=== PATIENT | male | born 1980 | race Caucasian/White ===

== ENCOUNTER 2017-02-23 13:18 | Emergency (ER) | payer BC ==
--- NOTE | 2017-02-23 13:26 | EDM.PDOC ---
ED HPI GENERAL MEDICAL PROBLEM - General Chief Complaint: Neck Problem Stated Complaint: [id number] SHARP PAIN LOWER NECK BETWEEN SHOULDER Time Seen by Provider: 02/23/17 13:22 Source of Information: Reports: Patient, Old Records, RN, RN Notes Reviewed History Limitations: Reports: No Limitations - History of Present Illness INITIAL COMMENTS - FREE TEXT/NARRATIVE: Arrives to ER by POV with c/o sharp pains at the base of the neck and upper back , especially between the shoulder blades. Pt was doing heavy outdoor/lawn care this weekend and felt a pop in the lower neck/upper T-spine region and since that time has has severe sharp pains with tingling and pain radiating down the Rt arm to the hand with some mild weakness in the hand. Onset: Sudden Onset Date: 02/21/17 Duration: Constant Location: Reports: Neck, Back Quality: Reports: Sharp Severity: Severe Improves with: Reports: None Worsens with: Reports: Movement Associated Symptoms: Reports: No Other Symptoms Neck Pain Score (Numeric/FACES): 8 - Related Data Allergies Allergy/AdvReac Type Severity Reaction Status Date / Time Sulfa (Sulfonamide Allergy Hives Verified 02/23/17 13:22 Antibiotics) Home Meds: Home Meds Omeprazole 20 mg PO DAILY 05/09/16 [History] Past Medical History HEENT History: Reports: Impaired Vision Other Genitourinary History: 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 Musculoskeletal History: Reports: Back Pain, Chronic, Fracture, Neck Pain, Chronic, Osteoarthritis, Other (See Below) - Past Surgical History Musculoskeletal Surgical History: Reports: Other (See Below) Social & Family History - Family History Family Medical History: Noncontributory - Tobacco Use Smoking Status *Q: Former Smoker - Caffeine Use Caffeine Use: Reports: Soda - Recreational Drug Use Recreational Drug Use: No - Living Situation & Occupation Living situation: Reports: with Family Occupation: Employed ED ROS GENERAL - Review of Systems Review Of Systems: ROS reveals no pertinent complaints other than HPI. ED EXAM, UPPER BACK/NECK PAIN - Physical Exam Exam: See Below Exam Limited By: No Limitations General Appearance: Alert, WD/WN, No Apparent Distress Eye Exam: Bilateral Eye: Normal Inspection Ears Exam: Normal External Exam, Hearing Grossly Normal Nose Exam: Normal Inspection, Normal Mucousa, No Blood Throat/Mouth Exam: Normal Inspection Head Exam: Atraumatic, Normocephalic Neck Exam: Limited Range of Motion, Paraspinous Muscle Tender Nexus Criteria: No: Posterior, Midline Cervical Tenderness, Evidence of Intoxication, Altered Level of Consciousness, Focal Neurological Deficit, Painful Distraction Injuries Cardiovascular/Respiratory: Regular Rate, Rhythm, Normal Peripheral Pulses Back Exam: Muscle Spasm, Paraspinal Tenderness (upper thoracic). 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 As Tested, No Motor/Sensory Deficits, Alert, Normal Mood/Affect, Oriented x 3 Psychiatric: Normal Mood Skin Exam: Normal Color, Warm/Dry Course - Vital Signs Last Recorded V/S: Last Vital Signs Temp 36.5 C 02/23/17 13:23 Pulse 90 02/23/17 13:23 Resp 16 02/23/17 13:23 BP 151/99 H 02/23/17 13:23 Pulse Ox 98 02/23/17 13:23 - Orders/Labs/Meds Orders: Active Orders 24 hr Category Date Time Status Cervical Spine wo Cont [CT] Stat Exams 02/23/17 13:51 Taken Thoracic Spine wo Cont [CT] Stat Exams 02/23/17 13:51 Taken Meds: Medications Discontinued Medications Generic Name Dose Route Start Last Admin Trade Name Augusta PRN Reason Stop Dose Admin Hydromorphone HCl 1 mg 02/23/17 13:51 02/23/17 13:56 Dilaudid IM 02/23/17 13:52 1 mg ONETIME ONE Administration Ketorolac Tromethamine 60 mg 02/23/17 13:51 02/23/17 13:57 Toradol IM 02/23/17 13:52 60 mg ONETIME ONE Administration - Radiology Interpretation Free Text/Narrative:: CT C & T spines: no acute fractures, mult-level postraumatic changes of DDD, osteophyte formation, and compression fractures, see Rad. report. CT Results Date: 02/23/17 CT Results Time: 15:02 Departure - Departure Time of Disposition: 15:03 Disposition: Home, Self-Care 01 Condition: Fair Clinical Impression: Cervical radiculopathy, Acute exacerbation of chronic low back pain - Discharge Information Instructions: Cervical Radiculopathy, Degenerative Disk Disease Forms: ED Department Discharge Additional Instructions: Rx: Decadron 4mg Rx: Gabapentin 300mg *Do not drive while under the influence of this medication. Limit activity as needed for 7 to 10 days. Follow up in clinic in 5 to 7 days for recheck. - My Orders Last 24 Hours: My Active Orders 02/23/17 13:51 Cervical Spine wo Cont [CT] Stat Thoracic Spine wo Cont [CT] Stat - Assessment/Plan Last 24 Hours: My Active Orders 02/23/17 13:51 Cervical Spine wo Cont [CT] Stat Thoracic Spine wo Cont [CT] Stat
[2017-02-23 13:29] VITALS: BP 151/99
[2017-02-23] MEDS ORDERED: HYDROmorphone 1 MG/ML Syringe IM ONE (13:51)
[2017-02-23] MEDS ORDERED: Ketorolac 30 MG/ML SDV IM ONE (13:51)
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
== END 2017-02-23 15:23 | disposition home or self-care (01) ==
LOC: DL.ED 13:18
DX: M54.12 Radiculopathy, cervical region (principal); M54.5 Low back pain; G89.29 Other chronic pain; H54.7 Unspecified visual loss; M19.90 Unspecified osteoarthritis, unspecified site; Z88.2 Allergy status to sulfonamides; Z87.891 Personal history of nicotine dependence
CPT/HCPCS: 72125; 72128; 96372; 99283; J1170; J1885

== ENCOUNTER 2018-01-01 08:17 | Emergency (ER) | payer BC ==
[2018-01-01 08:31] VITALS: BP 140/97
[2018-01-01] MEDS ORDERED: Ketorolac 30 MG/ML SDV IM ONE (08:33)
--- NOTE | 2018-01-01 08:44 | EDM.PDOC ---
ED HPI GENERAL MEDICAL PROBLEM - General Chief Complaint: Upper Extremity Injury/Pain Stated Complaint: LEFT SHOULD, ARM TINGLY. Time Seen by Provider: 01/01/18 08:30 Source of Information: Reports: Patient History Limitations: Reports: No Limitations - History of Present Illness INITIAL COMMENTS - FREE TEXT/NARRATIVE: This 37 yo male patient reports to the ED with left shoulder pain. The patient reports he initially injured his shoulder about 2 weeks ago while lifting up his 50 pound daughter. Since that time, the patient reports he has had increased discomfort with abduction of the shoulder. This morning, the patient reports that he woke up at about 0400 from sleeping on his left side and had increased pain in his left shoulder. The patient reports that today he has intense pain with abduction of his shoulder. The patient also reports sharp pains radiating down his arm into his hand. The patient reports that he took Ibuprofen at about 0400 and Tylenol at about 0630 with little to no symptom relief. The patient reports no previous injuries to the shoulder or arm. 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 - Related Data Allergies Allergy/AdvReac Type Severity Reaction Status Date / Time Sulfa (Sulfonamide Allergy Hives Verified 02/23/17 13:22 Antibiotics) Home Meds: Home Meds Omeprazole 20 mg PO DAILY 05/09/16 [History] Past Medical History HEENT History: Reports: Impaired Vision Other Genitourinary History: 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 Musculoskeletal History: Reports: Back Pain, Chronic, Fracture, Neck Pain, Chronic, Osteoarthritis, Other (See Below) Other Musculoskeletal History: left foot surgery - Past Surgical History Musculoskeletal Surgical History: Reports: Other (See Below) Social & Family History - Family History Family Medical History: Noncontributory - Caffeine Use Caffeine Use: Reports: Soda - Living Situation & Occupation Living situation: Reports: with Family Occupation: Employed Review of Systems - Review of Systems Review Of Systems: ROS reveals no pertinent complaints other than HPI. ED EXAM, GENERAL - Physical Exam Exam: See Below Exam Limited By: No Limitations General Appearance: Alert, WD/WN, Moderate Distress Eye Exam: Bilateral Eye: EOMI, Normal Inspection, PERRL Ears: Normal External Exam, Normal Canal, Hearing Grossly Normal, Normal TMs Nose: Normal Inspection, Normal Mucosa, No Blood Throat/Mouth: Normal Inspection, Normal Lips, Normal Teeth, Normal Gums, Normal Oropharynx, Normal Voice, No Airway Compromise Head: Atraumatic, Normocephalic Neck: Normal Inspection, Supple, Non-Tender, Full Range of Motion Respiratory/Chest: No Respiratory Distress Cardiovascular: Normal Peripheral Pulses, Regular Rate, Rhythm, No Edema, No Gallop, No JVD, No Murmur, No Rub GI/Abdominal: Normal Bowel Sounds, Soft, Non-Tender, No Organomegaly, No Distention, No Abnormal Bruit, No Mass (Male) Exam: Deferred Rectal (Males) Exam: Deferred Back Exam: Normal Inspection, Full Range of Motion, NT Extremities: Arm Pain (left shoulder pain (increased pain in the anterior SITS muscle insertions (supraspinatus marked increase in pain with palpation) ) Neurological: Alert, Oriented, CN II-XII Intact, Normal Cognition, Normal Gait, Normal Reflexes, No Motor/Sensory Deficits Psychiatric: Normal Affect, Normal Mood Skin Exam: Warm, Dry, Intact, Normal Color, No Rash Lymphatic: No Adenopathy Course - Vital Signs Last Recorded V/S: Last Vital Signs Temp 37.3 C 01/01/18 08:30 Pulse 76 01/01/18 08:30 Resp 16 01/01/18 08:30 BP 140/97 H 01/01/18 08:30 Pulse Ox 98 01/01/18 08:30 - Orders/Labs/Meds Orders: Active Orders 24 hr Category Date Time Status Shoulder Comp Lt [CR] Urgent Exams 01/01/18 08:33 Ordered Meds: Medications Discontinued Medications Generic Name Dose Route Start Last Admin Trade Name Freq PRN Reason Stop Dose Admin Ketorolac Tromethamine 60 mg 01/01/18 08:33 Toradol IM 01/01/18 08:34 ONETIME ONE Departure - Departure Time of Disposition: 09:55 Disposition: Home, Self-Care 01 Condition: Fair Clinical Impression: Left shoulder strain Qualifiers: Encounter type: initial encounter Qualified Code(s): S46.912A - Strain of unspecified muscle, fascia and tendon at shoulder and upper arm level, left arm , initial encounter - Discharge Information *PRESCRIPTION DRUG MONITORING PROGRAM REVIEWED*: No *COPY OF PRESCRIPTION DRUG MONITORING REPORT IN PATIENT MAXX: No Instructions: Shoulder Pain, [id number] Care Plan Goals: The patient was advised of the examination and x-ray results during the visit. The patient was given an injection of Toradol while in the ED. The patient was discharged with a script for Toradol (10 mg) #20 to take 1 by mouth every 6 hours and Grant (10/325) #16 to take 1 by mouth every 8 hours as needed for pain. The patient was also placed in a sling to support his left shoulder. If the patient has any additional symptoms or concerns, the patient should follow- up with his primary care facility or return to the emergency department. - My Orders Last 24 Hours: My Active Orders 01/01/18 08:33 Shoulder Comp Lt [CR] Urgent - Assessment/Plan Last 24 Hours: My Active Orders 01/01/18 08:33 Shoulder Comp Lt [CR] Urgent
--- NOTE | 2018-01-01 09:26 | CR ---
Medical history: 37-year-old male left shoulder pain. Interpretation: 4 views left shoulder demonstrate elevation of the humeral head relative to the gleno id of the scapula suggesting rotator cuff impingement or tear. Clinical? No juxta-articular soft tiss ue calcifications. No sign of pathologic skeletal lesion, left shoulder fracture, acromioclavicular separation or acute glenohumeral dislocation. Left lung apex clear. No reactive sclerosis or other arthritic degenerative changes left shoulder.
== END 2018-01-01 10:05 | disposition home or self-care (01) ==
LOC: DL.ED 08:17
DX: S46.912A Strain of unspecified muscle, fascia and tendon at shoulder and upper arm level, left arm, initial encounter (principal); X50.0XXA Overexertion from strenuous movement or load, initial encounter; Z88.2 Allergy status to sulfonamides
CPT/HCPCS: 73030; 96372; 99283; J1885

== ENCOUNTER 2018-08-30 09:59 | Emergency (ER) | payer BC ==
[2018-08-30 10:15] VITALS: BP 135/88
--- NOTE | 2018-08-30 10:50 | EDM.PDOC ---
ED HPI GENERAL MEDICAL PROBLEM - General Chief Complaint: Chest Pain Stated Complaint: HAVING CHEST PAINS Time Seen by Provider: 08/30/18 10:35 Source of Information: Reports: Patient History Limitations: Reports: No Limitations - History of Present Illness INITIAL COMMENTS - FREE TEXT/NARRATIVE: This 38 yo male patient reports to the ED with left sided chest pains that started yesterday. The patient reports his symptoms started yesterday while at home with an episode of chest pain along with near syncope. The patient reports he was at his home when he started for feel very lightheaded. The patient reports he caught himself on the chair prior to falling. The patient reports he noticed his heart was beating more strong than normal and he could feel pulsations in his neck. The patient reports he still has some minor chest pain ( left anterior chest). The patient reports he took 2 aspirin (325 mg) at home this morning. The patient reports he attempted to get an appointment in the clinic, but was advised to come to the ED for evaluation. The patient reports he has been seeing his primary care provider for fibromyalgia. The patient reports after the incident yesterday, he also had a headache in the left side of his head. The patient reports he still has a small amount of pain in his left head. The patient also reports he has been feeling flushed at intermittent times over the past 24 hours. 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 Left Chest Pain Score (Numeric/FACES): 5 - Related Data Allergies Allergy/AdvReac Type Severity Reaction Status Date / Time Sulfa (Sulfonamide Allergy Hives Verified 08/30/18 10:09 Antibiotics) Home Meds: Home Meds Omeprazole 40 mg PO DAILY 05/09/16 [History] Past Medical History HEENT History: Reports: Impaired Vision Cardiovascular History: Reports: None Respiratory History: Reports: None Gastrointestinal History: Reports: GERD Genitourinary History: Reports: Other (See Below) Other Genitourinary History: 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 Musculoskeletal History: Reports: Back Pain, Chronic, Fracture, Neck Pain, Chronic, Osteoarthritis, Other (See Below) Other Musculoskeletal History: left foot surgery Neurological History: Reports: None Psychiatric History: Reports: None Endocrine/Metabolic History: Reports: None Hematologic History: Reports: None Immunologic History: Reports: None Oncologic (Cancer) History: Reports: None Dermatologic History: Reports: None - Infectious Disease History Infectious Disease History: Reports: None - Past Surgical History Head Surgeries/Procedures: Reports: None Musculoskeletal Surgical History: Reports: Other (See Below) Social & Family History - Family History Family Medical History: Noncontributory - Tobacco Use Smoking Status *Q: Former Smoker Used Tobacco, but Quit: Yes Month/Year Tobacco Last Used: ? - Caffeine Use Caffeine Use: Reports: Coffee, Soda - Recreational Drug Use Recreational Drug Use: No - Living Situation & Occupation Living situation: Reports: with Family Occupation: Employed ED ROS GENERAL - Review of Systems Review Of Systems: ROS reveals no pertinent complaints other than HPI. ED EXAM, GENERAL - Physical Exam Exam: See Below Exam Limited By: No Limitations General Appearance: Alert, WD/WN, Anxious, Mild Distress Eye Exam: Bilateral Eye: EOMI, Normal Inspection, PERRL Ears: Normal External Exam, Normal Canal, Hearing Grossly Normal, Normal TMs Nose: Normal Inspection, Normal Mucosa, No Blood Throat/Mouth: Normal Inspection Head: Atraumatic, Normocephalic Neck: Normal Inspection, Supple, Non-Tender, Full Range of Motion Respiratory/Chest: No Respiratory Distress, Lungs Clear, Normal Breath Sounds, No Accessory Muscle Use, Other (left sided anterior chest wall tenderness (left lateral mid sternum)) Cardiovascular: Normal Peripheral Pulses, Regular Rate, Rhythm, No Edema, No Gallop, No Murmur, No Rub GI/Abdominal: Normal Bowel Sounds, Soft, Non-Tender, No Organomegaly, No Distention, No Abnormal Bruit, No Mass (Male) Exam: Deferred Rectal (Males) Exam: Deferred Back Exam: Normal Inspection Extremities: Normal Inspection, Normal Range of Motion, Non-Tender, Normal Capillary Refill, No Pedal Edema Neurological: Alert, Oriented, CN II-XII Intact, Normal Cognition, Normal Gait, Normal Reflexes, No Motor/Sensory Deficits Psychiatric: Anxious Skin Exam: Warm, Dry, Intact, Normal Color, No Rash Lymphatic: No Adenopathy Course - Vital Signs Last Recorded V/S: Last Vital Signs Temp 37.8 C 08/30/18 10:09 Pulse 90 08/30/18 10:09 Resp 14 08/30/18 10:09 BP 135/88 08/30/18 10:09 Pulse Ox 98 08/30/18 10:09 - Orders/Labs/Meds Orders: Active Orders 24 hr Category Date Time Status EKG Documentation Completion [RC] URGENT Care 08/30/18 10:10 Active CULTURE BLOOD [BC] Stat Lab 08/30/18 10:22 Received DRUG SCREEN URINE BIORAD [URCHEM] Stat Lab 08/30/18 10:10 Ordered UA RFX SADA AND CULT IF INDIC [URIN] Stat Lab 08/30/18 10:10 Ordered Labs: Laboratory Tests 08/30/18 08/30/18 08/30/18 Range/Units 10:22 10:22 10:22 WBC 8.4 (5.0-10.0) 10^3/uL RBC 5.41 (4.6-6.2) 10^6/uL Hgb 16.2 (14.0-18.0) g/dL Hct 46.4 (40.0-54.0) % MCV 85.8 (80-100) fL MCH 29.9 (27.0-34.0) pg MCHC 34.9 (33.0-35.0) g/dL Plt Count 273 (150-450) 10^3/uL Neut % (Auto) 72.7 (42.2-75.2) % Lymph % (Auto) 18.8 L (20.5-50.1) % Nelson % (Auto) 8.1 H (2-8) % Eos % (Auto) 0.2 L (1.0-3.0) % Baso % (Auto) 0.2 (0.0-1.0) % Sodium 134 L (135-145) mmol/L Potassium 3.5 L (3.6-5.0) mmol/L Chloride 101 (101-111) mmol/L Carbon Dioxide 22.0 (21.0-31.0) mmol/L Anion Gap 14.5 BUN 11 (7-18) mg/dL Creatinine 1.0 (0.6-1.3) mg/dL Est Cr Clr Drug Dosing 122.97 mL/min Estimated GFR (MDRD) > 60 BUN/Creatinine Ratio 11.00 Glucose 100 (74-105) mg/dL Lactic Acid 0.9 (0.5-2.2) mmol/L Calcium 9.5 (8.4-10.2) mg/dl Total Bilirubin 1.0 (0.2-1.0) mg/dL AST 27 (10-42) IU/L ALT 24 (10-60) IU/L Alkaline Phosphatase 79 (42-121) IU/L Troponin I < 0.02 (0.00-0.02) ng/ml Total Protein 8.0 (6.7-8.2) g/dl Albumin 4.6 (3.2-5.5) g/dl Globulin 3.4 Albumin/Globulin Ratio 1.35 Departure - Departure Time of Disposition: 11:09 Disposition: Home, Self-Care 01 Condition: Fair Clinical Impression: Nonspecific chest pain Instructions: Nonspecific Chest Pain, [id number] Forms: ED Department Discharge Care Plan Goals: The patient was advised of the examination, EKG, x-ray and lab results during the visit. The patient was encouraged to continue to monitor his symptoms. If the patient has any additional symptoms of concerns, the patient should either return to the emergency department or visit his primary care facility. - My Orders Last 24 Hours: My Active Orders 08/30/18 10:10 EKG Documentation Completion [RC] URGENT DRUG SCREEN URINE BIORAD [URCHEM] Stat UA RFX SADA AND CULT IF INDIC [URIN] Stat 08/30/18 10:22 CULTURE BLOOD [BC] Stat - Assessment/Plan Last 24 Hours: My Active Orders 08/30/18 10:10 EKG Documentation Completion [RC] URGENT DRUG SCREEN URINE BIORAD [URCHEM] Stat UA RFX SADA AND CULT IF INDIC [URIN] Stat 08/30/18 10:22 CULTURE BLOOD [BC] Stat
--- NOTE | 2018-08-30 10:59 | CR ---
Clinical history: 38-year-old male with chest pain. Interpretation: Negative exam. Upright AP portable chest film with external material hauler leads. Normal cardiac silhouette without alveolar edema or dependent pleural effusion (left-sided aortic arch). Mild scoliosis and early arthritic changes dorsal spine. No lung mass, hilar lymphadenopathy or focal lobar pneumonia. No atelectasis/collapse. No pneumothorax.
[2018-08-30 11:02] LABS: ANION GAP 14.5; CHLORIDE,CL 101 mmol/L (101-111); SODIUM,NA 134 mmol/L (135-145)
== END 2018-08-30 11:18 | disposition home or self-care (01) ==
LOC: DL.ED 09:59
DX: R07.9 Chest pain, unspecified (principal); K21.9 Gastro-esophageal reflux disease without esophagitis; Z87.891 Personal history of nicotine dependence; Z88.2 Allergy status to sulfonamides; Z79.899 Other long term (current) drug therapy
CPT/HCPCS: 36415; 71045; 80053; 83605; 84484; 85025; 87040; 87804; 93005; 99285-25

== ENCOUNTER 2018-10-26 21:37 | Emergency (ER) | payer BC ==
[2018-10-26 21:43] VITALS: BP 135/91
[2018-10-26] MEDS ORDERED: Cephalexin 500 MG Cap PO ONE (22:08)
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
== END 2018-10-26 22:19 | disposition home or self-care (01) ==
LOC: DL.ED 21:37
DX: S62.350 Nondisplaced fracture of shaft of second metacarpal bone, right hand (principal); S62.352B Nondisplaced fracture of shaft of third metacarpal bone, right hand, initial encounter for open fracture; Z88.2 Allergy status to sulfonamides; Z88.8 Allergy status to other drugs, medicaments and biological substances; Z79.899 Other long term (current) drug therapy; W20.8XXA Other cause of strike by thrown, projected or falling object, initial encounter
CPT/HCPCS: 73130; 99283; A9270

== ENCOUNTER 2019-11-14 22:10 | Emergency (ER) | payer BC, OTHER ==
[2019-11-14 22:29] VITALS: BP 142/94; PULSE 106
--- NOTE | 2019-11-14 22:36 | EDM.PDOC ---
ED HPI GENERAL MEDICAL PROBLEM - General Chief Complaint: Bite:Animal, Insect Stated Complaint: DOG BITE Time Seen by Provider: 11/14/19 22:35 Source of Information: Reports: Patient, RN, RN Notes Reviewed History Limitations: Reports: No Limitations - History of Present Illness INITIAL COMMENTS - FREE TEXT/NARRATIVE: Presents to ER with complaint of dog bite to the left buttock. Patient states the neighbors dog ran and bit him about an hour prior to arrival. Patient states the dog is not up-to-date on vaccinations, and the police have obtained the dog and is is being quarantined. Patient states the dog is always at home and in the fence, is not out in about, exposed to rabies. Patient feels confident that the dog probably does not have rabies, and therefore declines rabies vaccination at this time. Patient states last tetanus was about 5 years ago. Onset: Today, Sudden - Related Data Allergies Allergy/AdvReac Type Severity Reaction Status Date / Time chlorhexidine Allergy Rash Verified 11/14/19 22:29 Sulfa (Sulfonamide Allergy Hives Verified 11/14/19 22:29 Antibiotics) Home Meds: Home Meds Omeprazole 40 mg PO DAILY 05/09/16 [History] Baclofen 10 mg PO TID 11/14/19 [History] Indomethacin [Indomethacin ER] 75 mg PO BID 11/14/19 [History] Past Medical History HEENT History: Reports: Impaired Vision Cardiovascular History: Reports: None Respiratory History: Reports: None Gastrointestinal History: Reports: GERD Genitourinary History: Reports: Other (See Below) Other Genitourinary History: 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 Musculoskeletal History: Reports: Back Pain, Chronic, Fracture, Neck Pain, Chronic, Osteoarthritis, Other (See Below) Other Musculoskeletal History: left foot surgery Neurological History: Reports: None Psychiatric History: Reports: None Endocrine/Metabolic History: Reports: None Hematologic History: Reports: None Immunologic History: Reports: None Oncologic (Cancer) History: Reports: None Dermatologic History: Reports: None - Infectious Disease History Infectious Disease History: Reports: None - Past Surgical History Head Surgeries/Procedures: Reports: None Musculoskeletal Surgical History: Reports: Other (See Below) Other Musculoskeletal Surgeries/Procedures:: C5-C6 fusion Social & Family History - Family History Family Medical History: Noncontributory - Caffeine Use Caffeine Use: Reports: Soda - Living Situation & Occupation Living situation: Reports: with Family Occupation: Employed ED ROS GENERAL - Review of Systems Review Of Systems: Comprehensive ROS is negative, except as noted in HPI. ED EXAM, ANIMAL BITE - Physical Exam Exam: See Below Exam Limited By: No Limitations General Appearance: Alert, WD/WN, No Apparent Distress Eye Exam: Bilateral Eye: EOMI, Normal Inspection Ears: Normal External Exam, Hearing Grossly Normal Nose: Normal Inspection Throat/Mouth: Normal Inspection, Normal Voice, No Airway Compromise Head: Atraumatic, Normocephalic Neck: Normal Inspection, Supple, Non-Tender, Full Range of Motion Respiratory/Chest: No Respiratory Distress, Lungs Clear, Normal Breath Sounds, No Accessory Muscle Use, Chest Non-Tender Cardiovascular: Normal Peripheral Pulses, Regular Rate, Rhythm, No Edema, No Gallop, No JVD, No Murmur, No Rub Peripheral Pulses: 2+: Radial (L), Radial (R) GI/Abdominal: Normal Bowel Sounds, Soft, Non-Tender (Male) Exam: Deferred Rectal (Males) Exam: Deferred Back Exam: Normal Inspection, Full Range of Motion, NT Extremities: Normal Inspection, Normal Range of Motion, Non-Tender, Normal Capillary Refill, No Pedal Edema Neurological: Alert, Oriented, CN II-XII Intact, Normal Cognition, Normal Gait, Normal Reflexes, No Motor/Sensory Deficits Psychiatric: Normal Affect, Normal Mood Skin Exam: Other (abrasion to the left buttock with 4 puncture wounds, also sunburn to the upper arms bilaterally) Lymphadenopathy: Bilateral: No Adenopathy Lymphatic: No Adenopathy Course - Vital Signs Last Recorded V/S: Last Vital Signs Temp 100.1 F 11/14/19 22:21 Pulse 106 H 11/14/19 22:21 Resp 16 11/14/19 22:21 BP 142/94 H 11/14/19 22:21 Pulse Ox 98 11/14/19 22:21 - Orders/Labs/Meds Meds: Medications Discontinued Medications Generic Name Dose Route Start Last Admin Trade Name Freq PRN Reason Stop Dose Admin Clindamycin HCl 300 mg 11/14/19 22:44 11/14/19 22:52 Cleocin PO 11/14/19 22:45 300 mg ONETIME ONE Administration Levofloxacin 500 mg 11/14/19 22:44 11/14/19 22:52 Levaquin PO 11/14/19 22:45 500 mg ONETIME ONE Administration Departure - Departure Time of Disposition: 23:02 Disposition: Home, Self-Care 01 Condition: Good Clinical Impression: Dog bite of buttock Qualifiers: Encounter type: initial encounter Laterality: left Qualified Code(s): S31.825A - Open bite of left buttock, initial encounter - Discharge Information *PRESCRIPTION DRUG MONITORING PROGRAM REVIEWED*: No *COPY OF PRESCRIPTION DRUG MONITORING REPORT IN PATIENT MAXX: No Instructions: Animal Bite, Adult, [id number] Referrals: PCP,None [Primary Care Provider] - Forms: ED Department Discharge Additional Instructions: RX: Clindamycin, Levaquin May use ice to the area as tolerated May use Tylenol and/or Ibuprofen as directed for pain Follow up with your primary care facility if no improvement Follow up with the ER or Public Health if you decide you would like to go forward with Rabies vaccination Sepsis Event Note - Evaluation Sepsis Screening Result: No Definite Risk - Focused Exam Vital Signs: Vital Signs Temp Pulse Resp BP Pulse Ox 11/14/19 22:21 100.1 F 106 H 16 142/94 H 98 Date Exam was Performed: 11/14/19 Time Exam was Performed: 23:12
[2019-11-14] MEDS ORDERED: Levofloxacin 500 MG Tab PO ONE (22:44)
[2019-11-14] MEDS ORDERED: Clindamycin HCl 150 MG Cap PO ONE (22:44)
== END 2019-11-14 23:04 | disposition home or self-care (01) ==
LOC: DL.ED 22:10
DX: S31.825A Open bite of left buttock, initial encounter (principal); K21.9 Gastro-esophageal reflux disease without esophagitis; Z88.2 Allergy status to sulfonamides; Z88.3 Allergy status to other anti-infective agents; Z79.899 Other long term (current) drug therapy; W54.0XXA Bitten by dog, initial encounter
CPT/HCPCS: 99283; A9270

== ENCOUNTER 2021-05-19 16:48 | Emergency (ER) | payer OTHER ==
[2021-05-19] MEDS ORDERED: Acetaminophen/HYDROcodone 325-10 MG Tab PO ONE ×2 (16:49→18:04)
[2021-05-19] MEDS ORDERED: Bacitracin Oint 1 GM U/D Packet TOP ONE (18:04)
[2021-05-19] MEDS ORDERED: Lidocaine 5% Oint 35.44 GM Tube TOP ONE (18:04)
[2021-05-19] MEDS ORDERED: Diphtheria,Pertussis(Acell),Tetanus Vaccine 0.5 ML Syringe IM ONE (18:09)
[2021-05-19 18:10] VITALS: BP 135/102; PULSE 114
[2021-05-19] MEDS ORDERED: Bacitracin/Neomycin/Polymyxin B Oint 28.4 GM Tube TOP ONE (18:44)
[2021-05-19] MEDS: Bacitracin/Neomycin/Polymyxin B Oint 28.4 GM Tube ONE ×2 (18:48→19:00)
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
[2021-05-19] MEDS ORDERED: Acetaminophen/HYDROcodone 325-10 MG Tab ONE (19:04)
== END 2021-05-19 19:16 | disposition home or self-care (01) ==
LOC: DL.ED 16:48
DX: T22.211A Burn of second degree of right forearm, initial encounter (principal); K21.9 Gastro-esophageal reflux disease without esophagitis; G62.9 Polyneuropathy, unspecified; Z91.048 Other nonmedicinal substance allergy status; Z88.2 Allergy status to sulfonamides; Z88.8 Allergy status to other drugs, medicaments and biological substances; Z79.899 Other long term (current) drug therapy; Z23 Encounter for immunization
CPT/HCPCS: 16020; 90471; 90715; 99283; A9270

== ENCOUNTER 2024-03-18 10:01 | Emergency (ER) | payer SELFPAY ==
[2024-03-18 10:35] VITALS: BP 153/106; PULSE 87
[2024-03-18] MEDS: Ketorolac 30 MG/ML SDV IM ONE (11:02)
[2024-03-18] MEDS: Dexamethasone 4 MG/ML SDV PO ONE (11:02)
[2024-03-18 11:19] LABS: APPEARANCE,URINE CLEAR (CLEAR); BILIRUBIN,URINE NEGATIVE (NEGATIVE); COLOR,URINE YELLOW (YELLOW); GLUCOSE,URINE NEGATIVE (NEGATIVE); KETONES,URINE NEGATIVE (NEGATIVE); LEUKOCYTE ESTERASE,URINE NEGATIVE (NEGATIVE); NITRITE,URINE NEGATIVE (NEGATIVE); OCCULT BLOOD,URINE NEGATIVE (NEGATIVE); PH,URINE 6.5 (5.0-9.0); PROTEIN,URINE NEGATIVE (NEGATIVE); UROBILINOGEN,URINE 0.2 mg/dL (0.2-1.0)
[2024-03-18 11:24] LABS: AMPHETAMINES,URINE NEGATIVE (NEGATIVE); BARBITURATES,URINE NEGATIVE (NEGATIVE); BENZODIAZEPINE,URINE NEGATIVE (NEGATIVE); MDMA (ECSTASY), URINE NEGATIVE (NEGATIVE); METHADONE,URINE NEGATIVE (NEGATIVE); METHAMPHETAMINES,URINE NEGATIVE (NEGATIVE); OPIATES,URINE NEGATIVE (NEGATIVE); OXYCODONE,URINE NEGATIVE (NEGATIVE); PHENCYCLIDINE,URINE NEGATIVE (NEGATIVE); TCA,URINE NEGATIVE (NEGATIVE)
== END 2024-03-18 12:06 | disposition home or self-care (01) ==
LOC: MERGE 10:01 → DL.ED 10:01
DX: M54.50 Low back pain, unspecified (principal); Z88.2 Allergy status to sulfonamides
CPT/HCPCS: 72100; 80305; 81003; 96372; 99283; J1100; J1885